=== PATIENT | male | born 1995 | race Caucasian/White ===

== ENCOUNTER 2022-05-11 14:47 | Emergency (ER) | payer OTHER ==
[~2022-05-11 14:47] MED LIST: AMOXICILLIN500 MG PO; IBU800 MG PO; IBUPROFEN800 MG PO; PERCOCET 5-3251 EACH PO
[2022-05-11] MEDS ORDERED: MEDROL 4MG DOSEP4 MG PO ×4 (21:17→21:33)
[2022-05-11] MEDS ORDERED: VIBRAMYCIN100 MG PO ×4 (21:17→21:33)
== END 2022-05-11 21:37 | disposition home or self-care (01) ==
LOC: FER 14:47
DX: L03.116 Cellulitis of left lower limb (principal); F17.210 Nicotine dependence, cigarettes, uncomplicated
CPT/HCPCS: 73560; 73590; 96372; J0696; J1100; J1885